=== PATIENT | male | born 1970 | race Caucasian/White ===

== ENCOUNTER 2017-08-08 20:12 | Emergency (ER) | payer OTHER ==
[~2017-08-08] VITALS: Ht 180.3 cm; Wt 102.5 kg
--- NOTE | 2017-08-08 20:20 | NUR ---
PT ALYSSIA FROM HOME FOR ALMOST SYNCOPAL EPISODE/LIGHTHEADEDNESS AFTER SNIFFING FENTANYL. PT AAOX3. DENIES HEAD TRAUMA. MD AT BS FOR INFO. VSS. NAD NOTED. SAFETY AND COMFORT MEASURES PROVIDED. WILL MONITOR.
--- NOTE | 2017-08-08 20:50 | NUR ---
WAITING FOR GIRLFRIEND TO ARRIVE REFERRAL NURSE TO DISCHARGE.
--- NOTE | 2017-08-08 21:35 | NUR ---
PT'S GIRLFRIEND AT .
--- NOTE | 2017-08-08 21:42 | NUR ---
Pt ambulatory with a steady gait. Patient discharged to home in stable condition. Written and verbal after care instructions given. Patient verbalizes understanding of instruction.
[2017-08-08 21:43] VITALS: BP 132/88
== END 2017-08-08 21:44 | disposition home or self-care (01) ==
LOC: ER 20:15
DX: T40.4X1A Poisoning by other synthetic narcotics, accidental (unintentional), initial encounter (principal); Y92.89 Other specified places as the place of occurrence of the external cause
CPT/HCPCS: A4606; Z7610

== ENCOUNTER 2017-10-19 18:40 | Emergency (ER) | payer OTHER ==
[~2017-10-19] VITALS: Ht 180.3 cm; Wt 98.9 kg
[2017-10-19] MEDS ORDERED: LORAZEPAM INJ 2 MG/ML VIAL ONE (18:55)
[2017-10-19] MEDS ORDERED: IV NS 0.9% 1,000 ML BAG IV ONE ×2 (19:00)
[2017-10-19] MEDS ORDERED: LORAZEPAM INJ 2 MG/ML VIAL IV ONE (19:00)
--- NOTE | 2017-10-19 19:00 | NUR ---
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 SEEN BY MD FOR EVAL. VSS. NOTED ACTIVELY VOMITING. SAFETY AND COMFORT MEASURES PROVIDED. WILL MONITOR.
[2017-10-19] MEDS ORDERED: ONDANSETRON HCL/PF 4 MG/2 ML VIAL ONE (19:09)
--- NOTE | 2017-10-19 19:20 | NUR ---
IV ACCESS STARTED, BLOOD DRAWN. MEDICATED ORDERED.
[2017-10-19] MEDS ORDERED: ONDANSETRON HCL/PF 4 MG/2 ML VIAL IV ONE (19:30)
--- NOTE | 2017-10-19 21:00 | NUR ---
Patient is resting comfortably in bed with eyes closed. Easily aroused. VSS
--- NOTE | 2017-10-19 22:10 | NUR ---
Pt ambulatory with a steady gait.
[2017-10-19 22:36] VITALS: BP 149/95
--- NOTE | 2017-10-19 22:39 | NUR ---
Patient discharged to home in stable condition. Written and verbal after care instructions given. Patient verbalizes understanding of instruction.
--- NOTE | 2017-10-19 22:39 | NUR ---
PT PICKED UP BY HIS FRIEND.
== END 2017-10-19 22:37 | disposition home or self-care (01) ==
LOC: ER 18:43
DX: T40.7X1A Poisoning by cannabis (derivatives), accidental (unintentional), initial encounter (principal); R11.2 Nausea with vomiting, unspecified; Y92.89 Other specified places as the place of occurrence of the external cause; Z90.49 Acquired absence of other specified parts of digestive tract; Z60.2 Problems related to living alone
CPT/HCPCS: A4606; J2060; J2405; J7030; Z7610